=== PATIENT | male | born 1985 | race Caucasian/White ===

== ENCOUNTER 2017-12-24 05:09 | Emergency (ER) | payer SELFPAY ==
[2017-12-24 05:49] LABS: Absolute Lymphocytes (CBC) 4.1 K/uL (0.7-4.9); Absolute Neutrophil 6.6 K/uL (1.8-8.0); Basophils % 0.7 % (0-1.3); Eosinophils % 2.1 % (0-4.4); Hematocrit 46.8 % (39.6-49.0); MCH 32.1 pg (27.0-35.0); MCV 92.9 fL (80-100); MPV 9.5 fL (7.6-11.3); Monocytes % 8.1 % (3.3-12.3); RBC Red Blood Cell Count 5.04 M/uL (4.33-5.43)
[2017-12-24] MEDS ORDERED: FENTANYL CITR 100 MCG/2 ML ONE (05:55)
[2017-12-24] MEDS ORDERED: ONDANSETRON 4 MG/2 ML VIAL ONE (05:56)
[2017-12-24] MEDS ORDERED: TETANUS & DIPHTHERIA TOX,ADULT 0.5 ML VIAL ONE (05:56)
[2017-12-24] MEDS ORDERED: NA CHLORIDE 0.9% 1,000 ML ONE (05:56)
[2017-12-24 05:58] LABS: BUN Blood Urea Nitrogen 9 mg/dL (7-18); Bicarbonate 29 mmol/L (21-32); Glucose Level 189 mg/dL (74-106); Potassium 3.6 mmol/L (3.5-5.1); Sodium Level 140 mmol/L (136-145)
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
[2017-12-24] MEDS ORDERED: HYDROCODONE/APAP 10/325 TAB ONE (06:56)
[2017-12-24 07:21] VITALS: TEMP 98.8
[2017-12-24 07:25] VITALS: BP 137/94; O2SAT 98
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
== END 2017-12-24 07:11 | disposition home or self-care (01) ==
LOC: ER 05:09
DX: S00.81XA Abrasion of other part of head, initial encounter (principal); V28.4XXA Motorcycle driver injured in noncollision transport accident in traffic accident, initial encounter; Y93.89 Activity, other specified; Y92.410 Unspecified street and highway as the place of occurrence of the external cause; S42.022A Displaced fracture of shaft of left clavicle, initial encounter for closed fracture; S22.42XA Multiple fractures of ribs, left side, initial encounter for closed fracture; S61.412A Laceration without foreign body of left hand, initial encounter; S61.411A Laceration without foreign body of right hand, initial encounter; S01.01XA Laceration without foreign body of scalp, initial encounter; Z88.5 Allergy status to narcotic agent; I10 Essential (primary) hypertension
CPT/HCPCS: 36415; 70450; 71260; 72125; 74177; 80048; 85025; 86850; 86900; 86901; 90714; 96361; 96374; 96375; 99285; J2405; J3010; J7030; Q9967

== ENCOUNTER 2018-01-01 06:10 | Day surgery (SDC) | payer SELFPAY ==
--- NOTE | 2017-12-30 09:38 | EKG ---
Test Date: 2017-12-30 Test Time: 08:35:04 [employer]venir And Novelty Maker: JAMARCUS MEASUREMENT RESULTS: Intervals: Rate: 84 OK: 124 QRSD: 94 QT: 348 QTc: 411 [place]: P: 38 OK: 124 QRS: 36 T: 39 INTERPRETIVE STATEMENTS: Normal sinus rhythm Nonspecific T wave abnormality Abnormal ECG Compared to ECG 03/02/2014 21:11:30 No significant changes Electronically Signed On 12-30-17 09:37:22 CDT by Ash Garcia
[2017-12-30 10:16] LABS: Protime INR 1.01
[~2018-01-01 06:10] MED LIST: CEFAZOLIN/SWI 2gm 2 GM/20 ML SYR IV SCH
[2018-01-01] MEDS ORDERED: Ringers Lactate 1,000 ML IV ONE ×2 (06:33→09:01)
[2018-01-01] MEDS ORDERED: PROPOFOL 200 MG/20 ML VIAL IV ONE (07:22)
[2018-01-01] MEDS ORDERED: MIDAZOLAM HCL 2 MG/2 ML INJ ONE (07:22)
[2018-01-01] MEDS ORDERED: LIDOCAINE 2% MPF 5 ML VIAL ONE (07:23)
[2018-01-01] MEDS ORDERED: ROCURONIUM 50 MG/5 ML VIAL IV ONE ×2 (07:23→08:08)
[2018-01-01] MEDS ORDERED: FENTANYL CITR 100 MCG/2 ML ONE (07:23)
[2018-01-01] MEDS ORDERED: FENTANYL CITR 250 MCG/5 ML ONE (08:03)
[2018-01-01] MEDS ORDERED: Phenylephrine HCl 10 MG/ML 1 ML VIAL ONE (08:12)
[2018-01-01] MEDS ORDERED: DEXAMETHASONE 10 MG/ML VIAL ONE (09:05)
[2018-01-01] MEDS ORDERED: ONDANSETRON HCL 40 MG/20 ML VIAL ONE (09:08)
[2018-01-01] MEDS ORDERED: MEPERIDINE HCL 25 MG/0.5 ML ONE (09:09)
[2018-01-01] MEDS ORDERED: NS 0.9% VIAL 10 ML ONE (09:10)
[2018-01-01] MEDS ORDERED: GLYCOPYRROLATE 0.2 MG/ML SYR ONE (09:44)
[2018-01-01] MEDS ORDERED: ESMOLOL HCL 10 ML IV ONE (09:44)
[2018-01-01] MEDS ORDERED: NEOSTIGMINE 1 MG/ML -5 ML SYRINGE ONE (09:45)
--- NOTE | 2018-01-01 10:28 | P.BOP ---
Preoperative diagnosis: left clavicle fracture Postoperative diagnosis: same Primary procedure: ORIF left clavicle fracture Trucksmith: NONE,NONE Estimated blood loss: 40 cc Specimen: none Findings: see dictation Anesthesia: General Complications: None Implants: 8 hole Acumed plate Fluids & blood products: per anesthesia record Transferred to: Recovery Room Condition: Good
[2018-01-01 11:06] VITALS: O2SAT 95
[2018-01-01] MEDS ORDERED: MEPERIDINE HCL 50 MG/ML AMP ONE (11:16)
[2018-01-01] MEDS ORDERED: PROMETHAZINE 25 MG/ML VIAL ONE (11:25)
[2018-01-01] MEDS ORDERED: HYDROCODONE/APAP 7.5/325 MG TAB ONE (12:02)
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
--- NOTE | 2018-01-01 12:56 | RAD REPORT ---
EXAM DESCRIPTION: RAD - Clavicle Left - 01/01/2018 11:28 am CLINICAL HISTORY: Fracture fixation left clavicle COMPARISON: CT trauma study December 24 FINDINGS: Since the prior CT study there has been surgical fixation of previously detailed comminute d left clavicle fracture. Plate and screws are in place. Bones are in good anatomic alignment and pos ition. No suspicious or unexpected finding. IMPRESSION: Clavicle fracture repair as detailed.
[2018-01-01 14:00] VITALS: BP 123/74; TEMP 96.5
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
--- NOTE | 2018-01-03 08:11 | RAD REPORT ---
EXAM DESCRIPTION: RAD - Clavicle Left - 01/03/2018 8:02 am FINDINGS: Fluoroscopic assisted left clavicle fracture repair performed. There were 6 spot images duff bmitted. Imaging shows placement of surgical hardware across the fracture site. No suspicious or unex pected finding. Fluoro time was 0.2 minutes. Cumulative dose calculated at 2.92 mGy.
== END 2018-01-01 12:35 | disposition home or self-care (01) ==
LOC: OR 06:10
PROVIDERS: ATTEND Orthopaedic Surgery Sports Medicine
PROC: 0PSB04Z Reposition Left Clavicle with Internal Fixation Device, Open Approach (ICD-10-PCS; principal; 2018-01-01 07:30)
DX: S42.022A Displaced fracture of shaft of left clavicle, initial encounter for closed fracture (principal); I10 Essential (primary) hypertension; E66.9 Obesity, unspecified; Z68.41 Body mass index [BMI] 40.0-44.9, adult; Z88.6 Allergy status to analgesic agent; Z83.3 Family history of diabetes mellitus; Z82.3 Family history of stroke; Z82.49 Family history of ischemic heart disease and other diseases of the circulatory system
CPT/HCPCS: 36415; 71045; 85610; 85730; 93005; J0690; J1100; J2175; J2250; J2370; J2405; J2550; J2710; J3010

== ENCOUNTER 2020-07-18 01:24 | Emergency (ER) | payer SELFPAY ==
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
--- NOTE | 2020-07-18 02:30 | EDPHYS ---
Physician Documentation [facility] Name: Scooby Saab Age: 35 yrs Sex: Male : 1985 Arrival Date: 07/18/2020 Time: 01:27 Bed 2 Private MD: ED Physician Roosevelt Galvan HPI: 07/18 06:33 This 35 yrs old Male presents to ER via Ambulatory with complaints of Fall tw4 Injury, Back Pain, Neck Pain, >24Hrs Old. 06:33 Details of fall: The patient fell from an upright position, while standing. Onset: The tw4 symptoms/episode began/occurred 1 week(s) ago. Severity of symptoms: At their worst the symptoms were moderate, in the emergency department the symptoms are unchanged. The patient has not experienced similar symptoms in the past. Historical: - Allergies: : Codeine; jb4 - Home Meds: :43 None [Active]; jb4 - PMHx: :43 Hypertension; jb4 - PSHx: :43 None; jb4 - Immunization history:: Adult Immunizations up to date. - Social history:: Smoking status: Patient denies any tobacco usage or history of. Patient/guardian denies using alcohol, street drugs. ROS: 06:33 Constitutional: Negative for fever, chills, and weight loss, Eyes: Negative for injury, tw4 pain, redness, and discharge, Cardiovascular: Negative for chest pain, palpitations, and edema, Respiratory: Negative for shortness of breath, cough, wheezing, and pleuritic chest pain, Abdomen/GI: Negative for abdominal pain, nausea, vomiting, diarrhea, and constipation, MS/Extremity: Negative for injury and deformity, Skin: Negative for injury, rash, and discoloration, Neuro: Negative for headache, weakness, numbness, tingling, and seizure. 06:33 Back: Positive for Exam: 06:33 Constitutional: This is a well developed, well nourished patient who is awake, alert, tw4 and in no acute distress. Head/Face: Normocephalic, atraumatic. Chest/axilla: Normal chest wall appearance and motion. Nontender with no deformity. No lesions are appreciated. Cardiovascular: Regular rate and rhythm with a normal S1 and S2. No gallops, murmurs, or rubs. Normal PMI, no JVD. No pulse deficits. Respiratory: Lungs have equal breath sounds bilaterally, clear to auscultation and percussion. No rales, rhonchi or wheezes noted. No increased work of breathing, no retractions or nasal flaring. Abdomen/GI: Soft, non-tender, with normal bowel sounds. No distension or tympany. No guarding or rebound. No evidence of tenderness throughout. 06:33 Back: pain, that is very mild, ROM is normal, CVA tenderness, is absent, muscle spasm, is appreciated in the left trapezius and right trapezius. Vital Signs: 01:36 BP 135 / 106; Pulse 84; Resp 16; Temp 98.9(TE); Pulse Ox 100% on R/A; Weight 117.93 kg jb4 (R); Height 5 ft. 5 in. (165.10 cm); Pain 10/10; 01:36 Body Mass Index 43.27 (117.93 kg, 165.10 cm) jb4 MDM: 01:42 Patient medically screened. tw4 02:23 Differential diagnosis: abrasion, closed head injury, sprain, strain. Data reviewed: tw4 vital signs, nurses notes. Counseling: I had a detailed discussion with the patient and/or guardian regarding: the historical points, exam findings, and any diagnostic results supporting the discharge/admit diagnosis. Medical screen evaluation completed. EMTALA emergency medical condition absent. Special discussion: I discussed with the patient/guardian in detail that at this point there is no indication for admission to the hospital. It is understood, however, that if the symptoms persist or worsen the patient needs to return immediately for re-evaluation. 06:33 Data interpreted: Pulse oximetry: Interpretation: normal. tw4 Administered Medications: No medications were administered Disposition: 02:29 [facility] [place]. 4 Disposition: 07/18/20 02:30 Discharged to Home. Impression: Sprain of ligaments of cervical spine. - Condition is Stable. - Discharge Instructions: Cervical Sprain. - Medication Reconciliation Form, Thank You Letter, Antibiotic Education, Prescription Opioid Use form. - Follow up: Private Physician; When: Upon discharge from the Emergency Department; Reason: Recheck today's complaints, Continuance of care, Re-evaluation by your physician. - Problem is new. - Symptoms are unchanged. Signatures: Scooby Roblero RN RN jb4 Roosevelt Galvan MD MD tw4 Corrections: (The following items were deleted from the chart) 02:30 02:30 07/18/2020 02:30 Discharged to Home. Impression: Sprain of ligaments of cervical jb4 spine. Condition is Stable. Forms are Medication Reconciliation Form, Thank You Letter, Antibiotic Education, Prescription Opioid Use. Follow up: Private Physician; When: Upon discharge from the Emergency Department; Reason: Recheck today's complaints, Continuance of care, Re-evaluation by your physician. Problem is new. Symptoms are unchanged. tw4
[2020-07-18 02:37] VITALS: BP 135/106; TEMP 98.9; O2SAT 100
== END 2020-07-18 02:30 | disposition home or self-care (01) ==
LOC: ER 01:24
DX: S13.4XXA Sprain of ligaments of cervical spine, initial encounter (principal); I10 Essential (primary) hypertension; W19.XXXA Unspecified fall, initial encounter
CPT/HCPCS: 99282

== ENCOUNTER 2021-03-03 23:47 | Emergency (ER) | payer SELFPAY ==
[2021-03-04 00:24] LABS: Urine Blood Trace-intact (Negative); Urine Glucose Negative (Negative); Urine Protein Trace (Negative); Urine Specific Gravity >=1.030 (1.005-1.030)
[2021-03-04] MEDS ORDERED: IBUPROFEN 400 MG TAB ONE (00:46)
[2021-03-04] MEDS ORDERED: HYDROCODONE/APAP 7.5/325 MG TAB ONE (00:46)
[2021-03-04 00:56] LABS: Urine Appearance CLEAR (Clear); Urine Blood NEGATIVE (Negative); Urine Color DK YELLOW (Yellow); Urine Glucose NEGATIVE (Negative); Urine Protein NEGATIVE (Negative); Urine Specific Gravity >=1.030 (1.005-1.030); Urine pH 5.5 (5.0-7.0)
[2021-03-04 01:08] LABS: Urine Microscopic Reflex NO UMIC
[2021-03-04 01:15] LABS: Urine Bilirubin NEGATIVE (Negative)
--- NOTE | 2021-03-04 01:50 | ER ---
Nurse's Notes [facility] Name: Scooby Saab Age: 35 yrs Sex: Male : 1985 Arrival Date: 03/03/2021 Time: 23:53 Bed 16 Private MD: Diagnosis: Pain in right ankle and joints of right foot;Pain in left knee;UTI/ Urinary tract infection, site not specified Presentation: 03/04 00:02 Chief complaint: Patient states: left knee pain and swelling since Thursday, then em Thursday morning noticed right ankle swelling, took an unknown ABX because thought it was a spider bite. Coronavirus screen: Vaccine status: Patient reports being unvaccinated. Ebola Screen: Patient negative for fever greater than or equal to 101.5 degrees Fahrenheit, and additional compatible Ebola Virus Disease symptoms Patient denies exposure to infectious person. Patient denies travel to an Ebola-affected area in the 21 days before illness onset. No symptoms or risks identified at this time. Initial Sepsis Screen: Does the patient meet any 2 criteria? HR > 90 bpm. No. Patient's initial sepsis screen is negative. Does the patient have a suspected source of infection? No. Patient's initial sepsis screen is negative. Risk Assessment: Do you want to hurt yourself or someone else? Patient reports no desire to harm self or others. Onset of symptoms was March 04, 2021. 00:02 Method Of Arrival: Wheelchair em 00:02 Acuity: NINO 3 em Triage Assessment: 00:10 General: Appears in no apparent distress. uncomfortable, obese, well groomed, well dc2 developed. Pain: Complains of pain in Right ankle when puts weight on it and left knee both since Thursday. Denies trauma or injury. Neuro: No deficits noted. Cardiovascular: No deficits noted. Respiratory: Breath sounds are clear bilaterally. GI: No deficits noted. No signs and/or symptoms were reported involving the gastrointestinal system. : Urine is clear, orange from taking AZO Reports burning with urination, since Thursday. Musculoskeletal: Capillary refill < 3 seconds, is brisk, in bilateral Range of motion: limited in right ankle / foot Swelling present in Left knee and right ankle/ foot. 00:10 Injury Description: Denies known injury. States just happened when he woke up. dc2 00:10 General: Behavior is calm, cooperative, gets excited when describing the pain.. dc2 Historical: - Allergies: 00:04 Codeine; em - PMHx: 00:04 Hypertension; em - PSHx: 00:04 left knee; em - Immunization history:: Adult Immunizations up to date. - Social history:: Smoking status: Reported history of juuling and/or vaping. Screenin:10 Abuse screen: Denies threats or abuse. Denies injuries from another. Nutritional dc2 screening: No deficits noted. Tuberculosis screening: No symptoms or risk factors identified. Never had TB. Fall Risk None identified. Assessment: 00:10 General: Appears in no apparent distress. uncomfortable, obese, well groomed, well dc2 developed. Pain: Complains of pain in left knee and right ankle / foot, unable to bear weight. 00:10 Neuro: No deficits noted. Cardiovascular: No deficits noted. Respiratory: No deficits dc2 noted. GI: No deficits noted. : Reports burning with urination, since Thursday. Musculoskeletal: Swelling present in Left knee and right ankle/ foot. Vital Signs: 00:02 BP 135 / 106; Pulse 107; Resp 18; Temp 98.9; Pulse Ox 94% on R/A; Weight 120.2 kg; em Height 5 ft. 4 in. (162.56 cm); Pain 10/10; 01:00 BP 124 / 90; Pulse 105; Resp 19; Pulse Ox 99% ; Pain 5/10; dc2 02:07 BP 139 / 90; Pulse 101; Resp 19; Temp 97.5; Pulse Ox 99% ; Pain 10/10; dc2 00:02 Body Mass Index 45.49 (120.20 kg, 162.56 cm) em ED Course: 03/03 23:53 Patient arrived in ED. 03/04 00:04 Triage completed. em 00:04 Arm band placed on. em 00:05 Kar Marie PA is PHCP. cp 00:05 Kar Rachel MD is Attending Physician. cp 00:10 Pulse ox on. NIBP on. Door closed. Lights dimmed. dc2 00:15 Patient has correct armband on for positive identification. Bed in low position. Call dc2 light in reach. Side rails up X 1. Adult w/ patient. 00:15 Pulse ox on. NIBP on. dc2 00:33 No provider procedures requiring assistance completed. dc2 00:36 Lucy Mosqueda, RN is Primary Nurse. dc2 00:37 X-ray(s) taken. dc2 00:39 X-ray completed. Portable x-ray completed in exam room. md1 00:47 XRAY Ankle RIGHT 3 view In Process Unspecified. EDMS 00:47 XRAY Knee LEFT 3 view In Process Unspecified. EDMS 01:02 No apparent distress. Resting quietly. Awaiting radiology results. Awaiting disposition.dc2 02:33 Patient did not have IV access during this emergency room visit. dc2 Administered Medications: 00:22 Drug: Ibuprofen 800 mg Route: PO; dc2 01:27 Follow up: Response: Pain is decreased dc2 00:22 Drug: Hydrocodone-Acetaminophen (7.5 mg-325 mg) 1 tabs Route: PO; dc2 01:20 Follow up: Response: Pain is decreased dc2 01:26 Follow up: Response: Pain is decreased dc2 02:06 Drug: Rocephin (cefTRIAXone) 1 grams Route: IM; Site: left ventrogluteal; dc2 02:32 Follow up: Response: No adverse reaction dc2 02:06 Drug: Doxycycline 200 mg Route: PO; dc2 02:32 Follow up: Response: No adverse reaction dc2 02:06 Drug: Zithromax (azithromycin) 1 grams Route: PO; dc2 02:32 Follow up: Response: No adverse reaction dc2 Outcome: 01:50 Discharge ordered by . cp 02:32 Discharged to home with crutches. dc2 02:32 Condition: stable 02:32 Discharge instructions given to Instructed on Demonstrated understanding of instructions, follow-up care, medications, crutch walking, Prescriptions given X 3. 02:33 Patient left the ED. dc2 Signatures: Dispatcher [employer] Javda De Souza, RN RN Kra Valladares PA PA cp Di Santo, Mikaela md1 Pratima Daniel Denise, THANH RN dc2
--- NOTE | 2021-03-04 01:51 | EDPHYS ---
Physician Documentation [facility] Name: Scooby Saab Age: 35 yrs Sex: Male : 1985 Arrival Date: 03/03/2021 Time: 23:53 Bed 16 Private MD: HILDA Physician Kar Rachel HPI: 03/04 00:20 This 35 yrs old Male presents to ER via Wheelchair with complaints of Knee cp Injury. 00:20 Patient reports noticed left knee pain and swelling 2 days ago, improved today. Started cp to have right ankle pain and swelling yesterday. Patient reports pain with urination times 2 days. Reports feels like "razor blades" when urinating. Denies penile discharge. Denies fever. Reports taking previously prescribed antibiotic due to concern for "spider bite". Denies any recent injury to left knee and/or right ankle. Reports history of surgery to left knee. Historical: - Allergies: 00:04 Codeine; em - PMHx: 00:04 Hypertension; em - PSHx: 00:04 left knee; em - Immunization history:: Adult Immunizations up to date. - Social history:: Smoking status: Reported history of juuling and/or vaping. ROS: 00:30 Eyes: Negative for injury, pain, redness, and discharge. cp 00:30 Constitutional: Negative for body aches, chills, fever, poor PO intake. 00:30 ENT: Negative for drainage from ear(s), ear pain, sore throat, difficulty swallowing, difficulty handling secretions. 00:30 Neck: Negative for pain with movement, pain at rest, stiffness. 00:30 Cardiovascular: Negative for chest pain, edema, palpitations. 00:30 Respiratory: Negative for cough, shortness of breath, wheezing. 00:30 Abdomen/GI: Negative for nausea, vomiting, and diarrhea. 00:30 : Positive for urinary symptoms, Negative for penile discharge, penile pain, testicular pain 00:30 MS/extremity: Positive for pain, swelling, tenderness, of the right ankle and left knee, Negative for injury or acute deformity, decreased range of motion, paresthesias. 00:30 Skin: Negative for rash. 00:30 Neuro: Negative for altered mental status, headache, weakness. 00:30 All other systems are negative. Exam: 00:35 Constitutional: The patient appears in no acute distress, alert, awake, cp non-diaphoretic, non-toxic, well developed, well nourished. 00:35 Head/Face: Normocephalic, atraumatic. cp 00:35 Eyes: Periorbital structures: appear normal, Conjunctiva: normal, no exudate, no injection, Sclera: no appreciated abnormality, Lids and lashes: appear normal, bilaterally. 00:35 ENT: External ear(s): are unremarkable, Nose: is normal, Mouth: Lips: moist, Oral mucosa: moist, Posterior pharynx: Airway: no evidence of obstruction, patent. 00:35 Neck: ROM/movement: is normal, is supple, without pain, no range of motions limitations. 00:35 Chest/axilla: Inspection: normal. 00:35 Cardiovascular: Rate: tachycardic. 00:35 Respiratory: the patient does not display signs of respiratory distress, Respirations: normal, no use of accessory muscles, no retractions, labored breathing, is not present. 00:35 Abdomen/GI: Inspection: abdomen appears normal, Palpation: abdomen is soft and non-tender, in all quadrants. 00:35 Back: pain, is absent, ROM is normal. 00:35 Musculoskeletal/extremity: Joints: All joints are normal except the right ankle displays painful range of motion, swelling, tenderness, the left knee displays painful range of motion, swelling, tenderness. 00:35 Skin: cellulitis, is not appreciated, no rash present. Vital Signs: 00:02 BP 135 / 106; Pulse 107; Resp 18; Temp 98.9; Pulse Ox 94% on R/A; Weight 120.2 kg; em Height 5 ft. 4 in. (162.56 cm); Pain 10/10; 01:00 BP 124 / 90; Pulse 105; Resp 19; Pulse Ox 99% ; Pain 5/10; dc2 02:07 BP 139 / 90; Pulse 101; Resp 19; Temp 97.5; Pulse Ox 99% ; Pain 10/10; dc2 00:02 Body Mass Index 45.49 (120.20 kg, 162.56 cm) em MDM: 00:06 Patient medically screened. cp 01:50 Data reviewed: vital signs, nurses notes, lab test result(s), radiologic studies, plain cp films. 01:50 Test interpretation: by ED physician or midlevel provider: xrays of right ankle cp negative for fracture and xrays of left knee negative for fracture. Counseling: I had a detailed discussion with the patient and/or guardian regarding: the historical points, exam findings, and any diagnostic results supporting the discharge/admit diagnosis, lab results, radiology results, the need for outpatient follow up, a family practitioner, to return to the emergency department if symptoms worsen or persist or if there are any questions or concerns that arise at home. Response to treatment: the patient's symptoms have markedly improved after treatment. ED course: VSS. Low suspicion for septic joint at this time. Will treat with antibiotics for UTI/STD with oral antibiotics. RXs for NSAIDs and pain meds given. Will discharge to home for continued monitoring. 03/04 00:18 Order name: Urinalysis; Complete Time: 01:27 dc2 03/04 01:28 Interpretation: Reviewed. cp 03/04 00:24 Order name: Urine Dipstick-Ancillary; Complete Time: 01:12 EDMS 03/04 01:12 Interpretation: Normal except: UBLD Trace-intact; UPROT Trace; U NIT Positive. cp 03/04 00:14 Order name: XRAY Ankle RIGHT 3 view cp 03/04 00:14 Order name: XRAY Knee LEFT 3 view cp 03/04 00:18 Order name: Urine Dipstick-Ancillary (obtain specimen); Complete Time: 00:22 dc2 03/04 01:30 Order name: Crutches; Complete Time: 02:03 cp Administered Medications: 00:22 Drug: Ibuprofen 800 mg Route: PO; dc2 01:27 Follow up: Response: Pain is decreased dc2 00:22 Drug: Hydrocodone-Acetaminophen (7.5 mg-325 mg) 1 tabs Route: PO; dc2 01:20 Follow up: Response: Pain is decreased dc2 01:26 Follow up: Response: Pain is decreased dc2 02:06 Drug: Rocephin (cefTRIAXone) 1 grams Route: IM; Site: left ventrogluteal; dc2 02:32 Follow up: Response: No adverse reaction dc2 02:06 Drug: Doxycycline 200 mg Route: PO; dc2 02:32 Follow up: Response: No adverse reaction dc2 02:06 Drug: Zithromax (azithromycin) 1 grams Route: PO; dc2 02:32 Follow up: Response: No adverse reaction dc2 Disposition Summary: 03/04/21 01:50 Discharge Ordered Location: Home cp Problem: new cp Symptoms: have improved cp Condition: Stable cp Diagnosis - Pain in right ankle and joints of right foot cp - Pain in left knee cp - UTI/ Urinary tract infection, site not specified cp Followup: cp - With: Private Physician - When: 2 - 3 days - Reason: Worsening of condition Discharge Instructions: - Discharge Summary Sheet cp - Elastic Bandage and RICE Therapy cp - Urinary Tract Infection, Adult cp - Acute Knee Pain, Adult cp - Ankle Pain cp Forms: - Medication Reconciliation Form cp - Thank You Letter cp - Antibiotic Education cp - Prescription Opioid Use cp - Work release form dc2 Prescriptions: - Doxycycline Hyclate 100 mg Oral Tablet - take 1 tablet by ORAL route every 12 hours; 20 tablet; Refills: 0, Product cp Selection Permitted - Diclofenac Sodium 75 mg Oral Tablet Sustained Release - take 1 tablet by ORAL route 2 times per day; 30 tablet; Refills: 0, Product cp Selection Permitted - Tramadol 50 mg Oral Tablet - take 1 tablet by ORAL route every 8 hours as needed; 12 tablet; Refills: 0, cp Product Selection Permitted Addendum: 03/05/2021 08:32 Co-signature as Attending Physician, Kar Rachel MD I agree with the assessment and c lewis plan of care. Signatures: Dispatcher [employer] Kar Dickerson MD MD cha Munoz, Edgar, RN RN Kar Valladares PA PA cp Jaylin, Lucy RN RN dc2
[2021-03-04] MEDS ORDERED: CEFTRIAXONE 1000 MG/VIAL ONE (02:18)
[2021-03-04] MEDS ORDERED: AZITHROMYCIN 250 MG TAB ONE (02:18)
[2021-03-04] MEDS ORDERED: DOXYCYCLINE 100 MG CAP PO ONE (02:19)
[2021-03-04 03:14] VITALS: O2SAT 99
[2021-03-04 03:15] VITALS: BP 139/90; TEMP 97.5
--- NOTE | 2021-03-04 08:29 | RAD REPORT ---
EXAM DESCRIPTION: RAD - Knee Left 3 View - 03/04/2021 12:47 am CLINICAL HISTORY: PAIN COMPARISON: No comparisons FINDINGS: No fracture, dislocation or periosteal reaction.No joint effusion seen. No joint space elliott rowing. No soft tissue foreign body or air. Fatty tissues around the knee appear edematous. IMPRESSION: No acute bone or joint finding. Edema in the subcutaneous fatty tissues with no air, calcification or foreign body. Clinical concerns for internal derangement or occult bony injury could be further assessed with MR im aging.
--- NOTE | 2021-03-04 08:39 | RAD REPORT ---
EXAM DESCRIPTION: RAD - Ankle Right 3 View - 03/04/2021 12:47 am CLINICAL HISTORY: Pain;Swelling COMPARISON: No comparisons FINDINGS: No fracture, dislocation or periosteal reaction. No joint effusion seen. No joint space na rrowing. Mild lateral soft tissue swelling present. IMPRESSION: Mild soft tissue swelling lateral right ankle. No bone or joint abnormality seen.
== END 2021-03-04 02:33 | disposition home or self-care (01) ==
LOC: ER 23:47
DX: M25.571 Pain in right ankle and joints of right foot (principal); N39.0 Urinary tract infection, site not specified; I10 Essential (primary) hypertension; Z88.5 Allergy status to narcotic agent
CPT/HCPCS: 81003; 96372; 99284